=== PATIENT | male | born 1995 | race Caucasian/White ===

== ENCOUNTER 2025-03-01 11:12 | Outpatient (CLI) | payer OTHER ==
--- NOTE | 2025-03-01 13:17 | RADIOLOGY REPORT ---
CLINICAL INDICATION: L KNEE PAIN, INJ MENISCUS OF LEFT KNEE TECHNIQUE: Multiplanar, multisequence MRI of the left knee was performed without contrast. Contrast: None. COMPARISON: None FINDINGS: Joint space and synovium: There is no joint effusion, popliteal cyst or synovial thickening. Bones and articular cartilage: There is no evidence of acute fracture or bone marrow edema. The ali gnment is normal. The articular cartilage is preserved Menisci: The medial meniscus is intact. The lateral meniscus is intact. Tendons and ligaments: The tendons in the posterior knee are intact. The extensor mechanism is inta ct. The anterior cruciate ligament is intact. The posterior cruciate ligament is intact. The m edial collateral ligament and the lateral collateral ligament stabilizing complex are intact. The brandyn otibial band is intact. Muscles: Regional muscles are preserved in bulk and signal characteristics. Other: None. IMPRESSION: 1. No evidence of internal derangement in the left knee. HS:Y
== END 2025-03-01 23:59 | disposition home or self-care (01) ==
LOC: MRI02 11:12
PROVIDERS: ATTEND Surgery
DX: S83.92XA Sprain of unspecified site of left knee, initial encounter (principal); M25.562 Pain in left knee; X58.XXXA Exposure to other specified factors, initial encounter; Y93.89 Activity, other specified; Y92.89 Other specified places as the place of occurrence of the external cause; Y99.8 Other external cause status
CPT/HCPCS: 73721